=== PATIENT | male | born 1960 | race Caucasian/White ===

== ENCOUNTER → 2019-09-06 08:16 | Outpatient (BNVA) | payer MEDICARE, SELFPAY | PROVIDERS: Family Provider Physician Assistant; PCP Physician Assistant; Visit Provider Internal Medicine | DX: M05.9 Rheumatoid arthritis with rheumatoid factor, unspecified (principal); Z79.899 Other long term (current) drug therapy; Z11.59 Encounter for screening for other viral diseases; Z11.1 Encounter for screening for respiratory tuberculosis; Z79.52 Long term (current) use of systemic steroids; Z72.89 Other problems related to lifestyle | CPT/HCPCS: 36415; 80053; 85025; 85651; 86480; 86704; 86803; 87340; 99213 ==

== ENCOUNTER → 2019-11-16 12:56 | Outpatient (BNVA) | payer MEDICARE, SELFPAY | PROVIDERS: Family Provider Physician Assistant; PCP Physician Assistant; Visit Provider Internal Medicine | DX: M05.9 Rheumatoid arthritis with rheumatoid factor, unspecified (principal); Z79.52 Long term (current) use of systemic steroids; Z79.899 Other long term (current) drug therapy | CPT/HCPCS: 36415; 80053; 85025; 85651; 99213 ==

== ENCOUNTER → 2020-02-15 09:40 | Outpatient (BNVA) | payer MEDICARE, SELFPAY | PROVIDERS: Family Provider Physician Assistant; PCP Family Medicine; Visit Provider Internal Medicine | DX: M05.9 Rheumatoid arthritis with rheumatoid factor, unspecified (principal); Z79.899 Other long term (current) drug therapy; Z79.52 Long term (current) use of systemic steroids | CPT/HCPCS: 36415; 80053; 85025; 85651; 86140; 99214 ==

== ENCOUNTER 2020-05-08 09:29 | Outpatient (CLI) | payer MEDICARE, SELFPAY ==
[2020-05-08 10:29] LABS: Basophils # 0.1 10^3/uL (0.0-0.1); Basophils % 1.2 %; Eosinophils # 0.1 10^3/uL (0.0-0.8); Eosinophils % 2.3 %; Hematocrit 42.3 % (42.0-52.0); Lymphocytes # 1.1 10^3/uL (0.8-4.8); Lymphocytes % 21.4 %; Mean Corpuscular HGB Conc 33.1 g/dL (30.0-36.0); Mean Corpuscular Hemoglobin 32.4 pg (28.0-34.0); Mean Corpuscular Volume 97.9 fL (80-94); Mean Platelet Volume 9.6 fL (7.4-10.4); Monocytes # 0.7 10^3/uL (0.2-0.9); Monocytes % 12.7 %; Neutrophils # 3.22 10^3/uL (1.8-7.7); Nucleated Red Blood Cells % 0 %; Platelet Count 253 10^3/cmm (130-400); Red Blood Count 4.32 10^6/uL (4.1-5.3); Red Cell Distribution Width 13.3 % (12.1-15.1); White Blood Count 5.2 10^3/uL (4.0-10.0)
== END 2020-05-08 09:30 | disposition home or self-care (01) ==
PROVIDERS: PCP Family Medicine; Visit Provider Internal Medicine
DX: M05.9 Rheumatoid arthritis with rheumatoid factor, unspecified (principal)
CPT/HCPCS: 36415; 85025

== ENCOUNTER → 2020-05-16 12:19 | Outpatient (BNVA) | payer MEDICARE, SELFPAY | PROVIDERS: PCP Family Medicine; Visit Provider Internal Medicine | DX: M05.9 Rheumatoid arthritis with rheumatoid factor, unspecified (principal); Z79.899 Other long term (current) drug therapy; Z79.52 Long term (current) use of systemic steroids | CPT/HCPCS: 99214 ==

== ENCOUNTER 2020-06-30 10:15 | Outpatient (CLI) | payer MEDICARE, SELFPAY ==
[2020-06-30 11:21] LABS: Alanine Aminotransferase 16 U/L (0-41); Albumin Level 3.9 g/dL (3.5-5.2); Alkaline Phosphatase 64 IU/L (40-130); Anion Gap 14.9 (5-19); Aspartate Amino Transferase 12 U/L (0-40); Blood Urea Nitrogen 8 mg/dL (8-23); Calcium 8.4 mg/dL (8.5-10.5); Carbon Dioxide 23 mmol/L (22-29); Chloride 107 mmol/L (98-107); Globulin 2.9 g/dL (1.3-4.6); Glomerular Filtration Rate 114.6 mL/min (90-130); Glucose 144 mg/dL (65-115); Osmolality Calculated 293 mOsm/kg (285-295); Potassium 3.9 mmol/L (3.5-5.1); Sodium 141 mmol/L (136-145); Total Bilirubin 0.4 mg/dL (0.15-1.2); Total Protein 6.8 g/dL (6.6-8.7)
[2020-06-30 12:02] LABS: Erythrocyte Sedimentation Rate 28 mm/hr (0-10)
== END 2020-06-30 10:16 | disposition home or self-care (01) ==
PROVIDERS: PCP Family Medicine; Visit Provider Internal Medicine
DX: M05.9 Rheumatoid arthritis with rheumatoid factor, unspecified (principal)
CPT/HCPCS: 36415; 80053; 85651

== ENCOUNTER → 2020-08-16 08:37 | Outpatient (BNVA) | payer MEDICARE, SELFPAY | PROVIDERS: PCP Family Medicine; Visit Provider Internal Medicine | DX: M05.9 Rheumatoid arthritis with rheumatoid factor, unspecified (principal); Z79.899 Other long term (current) drug therapy | CPT/HCPCS: 99213 ==

== ENCOUNTER → 2020-11-15 08:24 | Outpatient (BNVA) | payer MEDICARE, SELFPAY | PROVIDERS: PCP Family Medicine; Visit Provider Internal Medicine | DX: M05.9 Rheumatoid arthritis with rheumatoid factor, unspecified (principal); Z79.899 Other long term (current) drug therapy | CPT/HCPCS: 36415; 80053; 85025; 85651; 86140 ==

== ENCOUNTER → 2020-11-21 09:10 | Outpatient (BNVA) | payer MEDICARE, SELFPAY | PROVIDERS: PCP Family Medicine; Visit Provider Internal Medicine | DX: M05.9 Rheumatoid arthritis with rheumatoid factor, unspecified (principal); Z79.899 Other long term (current) drug therapy | CPT/HCPCS: 99213 ==

== ENCOUNTER → 2021-02-19 11:26 | Outpatient (BNVA) | payer MEDICARE, SELFPAY | PROVIDERS: PCP Family Medicine; Visit Provider Internal Medicine | DX: M05.9 Rheumatoid arthritis with rheumatoid factor, unspecified (principal); Z79.899 Other long term (current) drug therapy; M19.90 Unspecified osteoarthritis, unspecified site | CPT/HCPCS: 36415; 80053; 85025; 85651; 86140 ==

== ENCOUNTER → 2021-03-02 09:25 | Outpatient (BNVA) | payer MEDICARE, SELFPAY | PROVIDERS: PCP Family Medicine; Visit Provider Internal Medicine | DX: M05.9 Rheumatoid arthritis with rheumatoid factor, unspecified (principal); Z79.899 Other long term (current) drug therapy; Z87.891 Personal history of nicotine dependence | CPT/HCPCS: 99213; 99214 ==

== ENCOUNTER 2021-05-15 11:32 | Outpatient (CLI) | payer MEDICARE, SELFPAY ==
[2021-05-15 12:19] LABS: Basophils # 0.1 10^3/uL (0.0-0.1); Basophils % 1.1 %; Eosinophils # 0.3 10^3/uL (0.0-0.8); Eosinophils % 3.4 %; Hematocrit 40.9 % (42.0-52.0); Hemoglobin 13.4 g/dL (11.7-16.6); Lymphocytes # 1.5 10^3/uL (0.8-4.8); Lymphocytes % 20.7 %; Mean Corpuscular HGB Conc 32.8 g/dL (30.0-36.0); Mean Corpuscular Hemoglobin 31.2 pg (28.0-34.0); Mean Corpuscular Volume 95.3 fl (80-94); Mean Platelet Volume 9.7 fL (7.4-10.4); Monocytes # 0.6 10^3/uL (0.2-0.9); Monocytes % 7.9 %; Neutrophils % 66.8 %; Nucleated Red Blood Cells % 0 %; Platelet Count 317 10^3/cmm (130-400); Red Blood Count 4.29 10^6/uL (4.1-5.3); Red Cell Distribution Width 13.7 % (12.1-15.1); White Blood Count 7.3 10^3/uL (4.0-10.0)
[2021-05-15 12:49] LABS: Erythrocyte Sedimentation Rate 37 mm/hr (0-10)
[2021-05-15 13:02] LABS: Alanine Aminotransferase 15 U/L (0-41); Albumin Level 4.2 g/dL (3.5-5.2); Alkaline Phosphatase 72 IU/L (40-130); Anion Gap 16.3 (5-19); Aspartate Amino Transferase 15 U/L (0-40); Blood Urea Nitrogen 6 mg/dL (8-23); C Reactive Protein 8.2 mg/L (0.0-4.9); Calcium 8.2 mg/dL (8.5-10.5); Carbon Dioxide 21 mmol/L (22-29); Chloride 105 mmol/L (98-107); Globulin 2.7 g/dL (1.3-4.6); Glucose 161 mg/dL (65-115); Osmolality Calculated 287 mOsm/kg (285-295); Potassium 4.3 mmol/L (3.5-5.1); Sodium 138 mmol/L (136-145); Total Bilirubin 0.6 mg/dL (0.15-1.2); Total Protein 6.9 g/dL (6.6-8.7)
== END 2021-05-15 11:33 | disposition home or self-care (01) ==
PROVIDERS: PCP Family Medicine; Visit Provider Internal Medicine
DX: M05.9 Rheumatoid arthritis with rheumatoid factor, unspecified (principal); Z79.899 Other long term (current) drug therapy
CPT/HCPCS: 80053; 85025; 85651; 86140

== ENCOUNTER → 2021-05-23 08:59 | Outpatient (BNVA) | payer MEDICARE, SELFPAY | PROVIDERS: PCP Family Medicine; Visit Provider Internal Medicine | DX: M05.9 Rheumatoid arthritis with rheumatoid factor, unspecified (principal); Z79.899 Other long term (current) drug therapy | CPT/HCPCS: 99214 ==

== ENCOUNTER 2021-09-24 08:12 | Outpatient (CLI) | payer MEDICARE, SELFPAY ==
[2021-09-24 08:50] LABS: Erythrocyte Sedimentation Rate 38 mm/hr (0-10)
[2021-09-24 08:52] LABS: Basophils # 0.1 10^3/uL (0.0-0.1); Basophils % 0.8 %; Eosinophils # 0.1 10^3/uL (0.0-0.8); Eosinophils % 1.9 %; Hematocrit 39.5 % (42.0-52.0); Hemoglobin 13.6 g/dL (11.7-16.6); Lymphocytes # 1.4 10^3/uL (0.8-4.8); Mean Corpuscular HGB Conc 34.4 g/dL (30.0-36.0); Mean Corpuscular Hemoglobin 31.3 pg (28.0-34.0); Mean Corpuscular Volume 90.8 fl (80-94); Mean Platelet Volume 9.6 fL (7.4-10.4); Monocytes # 0.6 10^3/uL (0.2-0.9); Monocytes % 7.3 %; Neutrophils # 5.31 10^3/uL (1.8-7.7); Neutrophils % 70.7 %; Nucleated Red Blood Cells % 0 %; Platelet Count 357 10^3/cmm (130-400); Red Blood Count 4.35 10^6/uL (4.1-5.3); Red Cell Distribution Width 13.8 % (12.1-15.1); White Blood Count 7.5 10^3/uL (4.0-10.0)
[2021-09-24 09:13] LABS: Alanine Aminotransferase 7 U/L (0-41); Albumin Level 3.8 g/dL (3.5-5.2); Alkaline Phosphatase 75 IU/L (40-130); Anion Gap 17.4 (5-19); Aspartate Amino Transferase 13 U/L (0-40); Blood Urea Nitrogen 6 mg/dL (8-23); C Reactive Protein 8.7 mg/L (0.0-4.9); Calcium 8.9 mg/dL (8.5-10.5); Carbon Dioxide 22 mmol/L (22-29); Chloride 106 mmol/L (98-107); Globulin 3.9 g/dL (1.3-4.6); Glomerular Filtration Rate 85.2 mL/min (90-130); Glucose 174 mg/dL (65-115); Osmolality Calculated 294 mOsm/kg (285-295); Potassium 4.4 mmol/L (3.5-5.1); Sodium 141 mmol/L (136-145); Total Bilirubin 0.8 mg/dL (0.15-1.2); Total Protein 7.7 g/dL (6.6-8.7)
== END 2021-09-24 08:13 | disposition home or self-care (01) ==
LOC: LAB 08:18
PROVIDERS: PCP Family Medicine; Visit Provider Internal Medicine
DX: R73.9 Hyperglycemia, unspecified (principal); R79.82 Elevated C-reactive protein (CRP); R70.0 Elevated erythrocyte sedimentation rate; M05.9 Rheumatoid arthritis with rheumatoid factor, unspecified; Z79.899 Other long term (current) drug therapy
CPT/HCPCS: 36415; 80053; 85025; 85651; 86140; 99214

== ENCOUNTER → 2022-01-25 08:43 | Outpatient (BNVA) | payer MEDICARE, SELFPAY | PROVIDERS: PCP Family Medicine; Visit Provider Internal Medicine | DX: M05.9 Rheumatoid arthritis with rheumatoid factor, unspecified (principal); Z79.899 Other long term (current) drug therapy; R79.82 Elevated C-reactive protein (CRP) | CPT/HCPCS: 99213 ==

== ENCOUNTER → 2022-06-03 13:01 | Outpatient (BNVA) | payer MEDICARE, SELFPAY | PROVIDERS: PCP Family Medicine; Visit Provider Internal Medicine | DX: M05.9 Rheumatoid arthritis with rheumatoid factor, unspecified (principal); Z79.899 Other long term (current) drug therapy | CPT/HCPCS: 99213 ==

== ENCOUNTER → 2022-09-23 13:22 | Outpatient (BNVA) | payer MEDICARE, SELFPAY | PROVIDERS: PCP Family Medicine; Visit Provider Internal Medicine | DX: Z79.899 Other long term (current) drug therapy (principal); M05.9 Rheumatoid arthritis with rheumatoid factor, unspecified | CPT/HCPCS: 80053; 85025; 85651; 86140; 99213 ==

== ENCOUNTER → 2023-02-24 14:09 | Outpatient (BNVA) | payer MEDICARE, SELFPAY | PROVIDERS: PCP Family Medicine; Visit Provider Internal Medicine | DX: Z79.899 Other long term (current) drug therapy (principal); M05.9 Rheumatoid arthritis with rheumatoid factor, unspecified | CPT/HCPCS: 99214 ==

== ENCOUNTER 2023-08-06 11:58 | Outpatient (CLI) | payer MEDICARE, SELFPAY ==
[2023-08-06 12:24] LABS: Basophils # 0.1 10^3/uL (0.0-0.1); Basophils % 1.1 %; Eosinophils # 0.2 10^3/uL (0.0-0.8); Eosinophils % 2.2 %; Lymphocytes # 1.9 10^3/uL (0.8-4.8); Lymphocytes % 25.5 %; Mean Corpuscular HGB Conc 33.3 g/dL (30-55); Mean Corpuscular Hemoglobin 31.8 pg (27-33); Mean Corpuscular Volume 95.8 fl (82-101); Mean Platelet Volume 9.5 fL (7.4-10.4); Monocytes # 0.7 10^3/uL (0.2-0.9); Monocytes % 8.9 %; Neutrophils # 4.59 10^3/uL (1.8-7.7); Neutrophils % 62.2 %; Nucleated Red Blood Cells % 0 %; Platelet Count 301 10^3/cmm (157-399); Red Blood Count 4.49 10^6/uL (3.85-5.65); Red Cell Distribution Width 13.3 % (12.1-15.1); White Blood Count 7.38 10^3/uL (3.29-11.43)
[2023-08-06 12:40] LABS: Alanine Aminotransferase 13 U/L (0-41); Albumin Level 4.1 g/dL (3.5-5.2); Alkaline Phosphatase 70 U/L (40-130); Aspartate Amino Transferase 12 U/L (0-40); Globulin 3.3 g/dL (1.3-4.6); Glomerular Filtration Rate 67.4 mL/min (90-130); Total Bilirubin 0.7 mg/dL (0.15-1.2); Total Protein 7.4 g/dL (6.6-8.7)
== END 2023-08-06 11:59 | disposition home or self-care (01) ==
LOC: LAB 11:59
PROVIDERS: PCP Family Medicine; Visit Provider Internal Medicine Rheumatology
DX: M05.9 Rheumatoid arthritis with rheumatoid factor, unspecified (principal); Z79.899 Other long term (current) drug therapy
CPT/HCPCS: 36415; 80076; 82565; 85025; 86140

== ENCOUNTER → 2023-12-16 09:10 | Outpatient (BNVA) | payer MEDICARE, SELFPAY | PROVIDERS: PCP Family Medicine; Visit Provider Internal Medicine Rheumatology | DX: M05.9 Rheumatoid arthritis with rheumatoid factor, unspecified (principal); Z79.899 Other long term (current) drug therapy; Z71.85 Encounter for immunization safety counseling; Z11.1 Encounter for screening for respiratory tuberculosis; Z11.59 Encounter for screening for other viral diseases | CPT/HCPCS: 99214 ==

== ENCOUNTER → 2024-05-18 09:14 | Outpatient (BNVA) | payer MEDICARE, SELFPAY | PROVIDERS: PCP Family Medicine; Visit Provider Internal Medicine Rheumatology | DX: M05.9 Rheumatoid arthritis with rheumatoid factor, unspecified (principal); Z79.899 Other long term (current) drug therapy; Z71.85 Encounter for immunization safety counseling | CPT/HCPCS: 80076; 82306; 82565; 85025; 85651; 86140; 86480; 86704; 86803; 87340; 99214 ==

== ENCOUNTER 2024-11-02 11:21 | Outpatient (CLI) | payer MEDICARE, SELFPAY ==
[2024-11-02 12:44] LABS: Hematocrit 37.1 % (37-53); Hemoglobin 13.00 g/dL (11.27-16.99); Mean Corpuscular HGB Conc 35.0 g/dL (30-55); Mean Corpuscular Hemoglobin 32.7 pg (27-33); Mean Corpuscular Volume 93.2 fl (82-101); Nucleated Red Blood Cells % 0 %; Platelet Count 300 10^3/cmm (157-399); Red Blood Count 3.98 10^6/uL (3.85-5.65); White Blood Count 5.54 10^3/uL (3.29-11.43)
[2024-11-02 12:56] LABS: Alanine Aminotransferase 12 U/L (0-41); Albumin Level 3.9 g/dL (3.5-5.2); Alkaline Phosphatase 78 U/L (40-130); Aspartate Amino Transferase 12 U/L (0-40); Globulin 3.5 g/dL (1.3-4.6); Total Protein 7.4 g/dL (6.6-8.7)
== END 2024-11-02 11:22 | disposition home or self-care (01) ==
LOC: LAB 11:36
PROVIDERS: PCP Family Medicine; Visit Provider Internal Medicine Rheumatology
DX: M05.9 Rheumatoid arthritis with rheumatoid factor, unspecified (principal); Z79.899 Other long term (current) drug therapy
CPT/HCPCS: 36415; 80076; 82565; 85025; 85651; 86140

== ENCOUNTER → 2024-11-17 09:25 | Outpatient (BNVA) | payer MEDICARE, SELFPAY | PROVIDERS: PCP Family Medicine; Visit Provider Internal Medicine Rheumatology | DX: M05.9 Rheumatoid arthritis with rheumatoid factor, unspecified (principal); Z79.899 Other long term (current) drug therapy; Z71.85 Encounter for immunization safety counseling | CPT/HCPCS: 36415; 82306; 82565; 84520; 99214 ==